=== PATIENT | female | born 1945 | race Caucasian/White ===

== ENCOUNTER 2018-03-31 15:17 | Emergency (ER) | payer OTHER ==
[~2018-03-31] VITALS: Ht 157.5 cm; Wt 80.7 kg
[~2018-03-31 15:17] MED LIST: PLAQUENIL; VERAPAMIL ER240 MG; ZOLOFT50 MG
[2018-03-31] MEDS ORDERED: MELOXICAM7.5 MG PO (15:23)
== END 2018-03-31 19:57 | disposition home or self-care (01) ==
LOC: ER 15:17
DX: S80.11XA Contusion of right lower leg, initial encounter (principal); S90.31XA Contusion of right foot, initial encounter; S80.02XA Contusion of left knee, initial encounter; S30.0XXA Contusion of lower back and pelvis, initial encounter; W10.8XXA Fall (on) (from) other stairs and steps, initial encounter; Y93.89 Activity, other specified; Y92.89 Other specified places as the place of occurrence of the external cause; Y99.8 Other external cause status